=== PATIENT | male | born 1980 | race Caucasian/White ===

== ENCOUNTER 2020-02-10 02:21 | Emergency (ER) | payer OTHER | END 2020-02-10 03:12 | disposition home or self-care (01) | LOC: MADERS 02:21 | DX: Z04.1 Encounter for examination and observation following transport accident (principal); R00.0 Tachycardia, unspecified; I10 Essential (primary) hypertension; Z79.899 Other long term (current) drug therapy; V44.5XXA Car driver injured in collision with heavy transport vehicle or bus in traffic accident, initial encounter | CPT/HCPCS: 99282 ==